=== PATIENT | female | born 1945 | race Caucasian/White ===

== ENCOUNTER 2019-06-25 06:36 | Day surgery (SDC) | payer MEDICARE, BC ==
[2019-06-25] VITALS (7 sets, daily range): BP systolic 134–157; BP diastolic 63–73
[2019-06-25] MEDS ORDERED: normal saline 1000ml 1,000 ML IV PRN (07:05)
[2019-06-25 07:28] LABS: BASOPHILS # (AUTO) 0.1 X10'3 (0-0.2); BASOPHILS % (AUTO) 0.8 % (0-1); EOSINOPHILS # (AUTO) 0.2 X10'3 (0-0.9); EOSINOPHILS % (AUTO) 2.7 % (0-6); HEMATOCRIT 36.6 % (35.0-45.0); HEMOGLOBIN 12.7 g/dl (12.0-16.0); LYMPHOCYTES # (AUTO) 2.7 X10'3 (1.1-4.8); LYMPHOCYTES % (AUTO) 44.4 % (21-51); MEAN CORPUSCULAR HEMOGLOBIN 32.1 PG (27.0-31.0); MEAN CORPUSCULAR HGB CONC 34.7 g/dL (33.0-36.5); MEAN CORPUSCULAR VOLUME 92.4 FL (78-98); MEAN PLATELET VOLUME 8.5 FL (7.4-10.4); MONOCYTES # (AUTO) 0.5 X10'3 (0-0.9); MONOCYTES % (AUTO) 8.3 % (2-12); NEUTROPHILS # (AUTO) 2.6 X10'3 (1.8-7.7); NEUTROPHILS % (AUTO) 43.8 % (42-75); PLATELET COUNT 188 X10'3 (140-440); RED BLOOD COUNT 3.96 X10'6 (4.20-5.60); RED CELL DISTRIBUTION WIDTH 12.9 % (11.5-14.5)
[2019-06-25 07:33] LABS: ALBUMIN 3.5 G/DL (3.4-5.0); ANION GAP 8 (8-16); BLOOD UREA NITROGEN 16 MG/DL (7-18); BUN/CREATININE RATIO 18.8 (6.6-38.0); CALCIUM 8.9 MG/DL (8.5-10.1); CHLORIDE 106 MMOL/L (99-107); CREATININE 0.85 MG/DL (0.40-0.90); GLUCOSE 103 MG/DL (70-104); SODIUM 141 MMOL/L (135-145); TOTAL CARBON DIOXIDE 27.3 MMOL/L (24-32); eGFR 66 ML/MIN
[2019-06-25] MEDS ORDERED: BUTA-244 PO (08:02)
[2019-06-25] MEDS ORDERED: ROSU5TAB12 PO (08:05)
[2019-06-25] MEDS ORDERED: MULT-933 PO (08:05)
[2019-06-25] MEDS ORDERED: VERA120T2 PO (08:05)
[2019-06-25] MEDS ORDERED: fentaNYL/PF 50MCG/1 ML 2ML syringe IV PRN (08:25)
[2019-06-25] MEDS ORDERED: midazolam 2 mg/2 ml injection IV PRN (08:25)
[2019-06-25] MEDS ORDERED: LIDOcaine 1%/PF 5ML 10 MG/ML VIAL SQ ONE (08:25)
[2019-06-25] MEDS ORDERED: heparin 1,000 UNITS/NS 500ml 500 ML ICATH ONE (08:25)
[2019-06-25] MEDS ORDERED: heparin 1,000 UNITS/NS 500ml 500 ML ONE (08:26)
[2019-06-25] MEDS ORDERED: LIDOcaine 1%/PF 5ML 10 MG/ML VIAL ONE (08:26)
[2019-06-25] MEDS ORDERED: fentaNYL/PF 50MCG/1 ML 2ML syringe ONE ×2 (08:26→09:03)
[2019-06-25] MEDS ORDERED: midazolam 2 mg/2 ml injection ONE ×2 (08:26→09:03)
[2019-06-25] MEDS ORDERED: iohexol 300mg/ml 100ml inj. ONE (08:27)
--- NOTE | 2019-06-25 08:29 | NUR ---
Patient to OR with RN via trent
[2019-06-25] MEDS ORDERED: ondansetron/PF 4mg/2ml inj ONE (08:31)
--- NOTE | 2019-06-25 09:59 | NUR ---
Rec patient back from OR via gurney. Awake, sleepy. Denies pain. Left groin with dressing cdi. No hematoma. Bilateral pedal pulses palpable, strong. Pt given instructions on laying flat x6 hrs, until 1550. vss. Asking for water. at bedside.
[2019-06-25] MEDS ORDERED: normal saline 1000ml 1,000 ML IV SCH (10:01)
[2019-06-25] MEDS ORDERED: OMEP20TA23 PO (10:37)
[2019-06-25] MEDS ORDERED: ASPI81TA52 PO (10:38)
[2019-06-25] MEDS ORDERED: PRAM0.754 PO (10:40)
--- NOTE | 2019-06-25 16:43 | NUR ---
Patient discharged in stable condition. Layed flat for 6 hours with no bleeding or hematoma at groin. Dressing clean and dry at discharge. vss. given after care instructions as well as warning re event of bleeding. Piv dc'd. Out to personal vehicle with driving.
== END 2019-06-25 16:30 | disposition home or self-care (01) ==
LOC: SSTAY O 06:36 → EDBD 08:30 → SSTAY O 16:30
PROVIDERS: ATTEND Radiology Vascular & Interventional Radiology
DX: I70.212 Atherosclerosis of native arteries of extremities with intermittent claudication, left leg (principal); G25.81 Restless legs syndrome; M81.0 Age-related osteoporosis without current pathological fracture; E78.5 Hyperlipidemia, unspecified; H40.9 Unspecified glaucoma; Z87.11 Personal history of peptic ulcer disease; Z79.899 Other long term (current) drug therapy; Z88.2 Allergy status to sulfonamides; Z88.8 Allergy status to other drugs, medicaments and biological substances; Z88.5 Allergy status to narcotic agent; Z90.49 Acquired absence of other specified parts of digestive tract; Z98.890 Other specified postprocedural states; F17.210 Nicotine dependence, cigarettes, uncomplicated; Z72.89 Other problems related to lifestyle
CPT/HCPCS: 36415; 37221; 80048; 85025; 85610; 99152; 99153; C1769; C1876; C1894; J1644; J2250; J2405; J3010; J7030; Q9967

== ENCOUNTER 2019-07-16 06:48 | Day surgery (SDC) | payer MEDICARE, BC ==
[~2019-07-16] VITALS: Ht 157.5 cm; Wt 53.3 kg
[2019-07-16] VITALS (9 sets, daily range): BP systolic 138–165; BP diastolic 67–87
[~2019-07-16 06:48] MED LIST: ASPI81TA52 PO; BUTA-244 PO; MULT-933 PO; OMEP20TA23 PO; PRAM0.754 PO; ROSU5TAB12 PO; VERA120T2 PO
[2019-07-16] MEDS ORDERED: LACT1CAP65 PO (07:30)
[2019-07-16] MEDS ORDERED: CA C1TAB91 PO (07:30)
[2019-07-16] MEDS ORDERED: PRAM0.75 PO (07:30)
[2019-07-16] MEDS ORDERED: FLEC100T2 PO (07:30)
[2019-07-16 08:08] LABS: BASOPHILS % (AUTO) 0.8 % (0-1); EOSINOPHILS # (AUTO) 0.2 X10'3 (0-0.9); EOSINOPHILS % (AUTO) 2.5 % (0-6); HEMATOCRIT 36.1 % (35.0-45.0); HEMOGLOBIN 12.5 g/dl (12.0-16.0); LYMPHOCYTES # (AUTO) 2.4 X10'3 (1.1-4.8); LYMPHOCYTES % (AUTO) 38.1 % (21-51); MEAN CORPUSCULAR HEMOGLOBIN 31.9 PG (27.0-31.0); MEAN CORPUSCULAR HGB CONC 34.6 g/dL (33.0-36.5); MEAN CORPUSCULAR VOLUME 92.2 FL (78-98); MEAN PLATELET VOLUME 8.3 FL (7.4-10.4); MONOCYTES # (AUTO) 0.5 X10'3 (0-0.9); MONOCYTES % (AUTO) 8.3 % (2-12); NEUTROPHILS # (AUTO) 3.1 X10'3 (1.8-7.7); NEUTROPHILS % (AUTO) 50.3 % (42-75); PLATELET COUNT 191 X10'3 (140-440); RED BLOOD COUNT 3.92 X10'6 (4.20-5.60); RED CELL DISTRIBUTION WIDTH 12.6 % (11.5-14.5); WHITE BLOOD COUNT 6.2 X10'3 (4.5-11.0)
[2019-07-16] MEDS: normal saline 1000ml 1,000 ML IV PRN ×2 (08:15→11:33)
[2019-07-16] MEDS ORDERED: fentaNYL/PF 50MCG/1 ML 2ML syringe IV PRN (08:20)
[2019-07-16] MEDS ORDERED: heparin 1,000 UNITS/NS 500ml 500 ML ICATH ONE (08:20)
[2019-07-16] MEDS ORDERED: midazolam 2 mg/2 ml injection IV PRN (08:20)
[2019-07-16] MEDS ORDERED: LIDOcaine 1% 30ml preserv. free vial SQ ONE (08:20)
[2019-07-16 08:26] LABS: ALBUMIN 3.6 G/DL (3.4-5.0); ANION GAP 6 (8-16); BLOOD UREA NITROGEN 13 MG/DL (7-18); BUN/CREATININE RATIO 15.1 (6.6-38.0); CALCIUM 8.8 MG/DL (8.5-10.1); CHLORIDE 105 MMOL/L (99-107); CREATININE 0.86 MG/DL (0.40-0.90); GLUCOSE 106 MG/DL (70-104); POTASSIUM 3.7 MMOL/L (3.5-5.1); SODIUM 141 MMOL/L (135-145); TOTAL CARBON DIOXIDE 29.8 MMOL/L (24-32); eGFR 65 ML/MIN
[2019-07-16] MEDS ORDERED: midazolam 2 mg/2 ml injection ONE ×2 (08:42→09:18)
[2019-07-16] MEDS ORDERED: LIDOcaine 1%/PF 5ML 10 MG/ML VIAL ONE (08:42)
[2019-07-16] MEDS ORDERED: fentaNYL/PF 50MCG/1 ML 2ML syringe ONE ×2 (08:43→09:18)
[2019-07-16] MEDS ORDERED: heparin 1,000 UNITS/NS 500ml 500 ML ONE (08:43)
[2019-07-16] MEDS ORDERED: iohexol 300mg/ml 100ml inj. ONE (08:43)
[2019-07-16] MEDS ORDERED: heparin 1,000unit/ml 10ml vial 10 ML ONE (09:25)
[2019-07-16] MEDS ORDERED: normal saline 1000ml 1,000 ML IV SCH (10:01)
[2019-07-16] MEDS ORDERED: acetaminophen 325mg tablet PO PRN (11:20)
[2019-07-16] MEDS ORDERED: ondansetron/PF 4mg/2ml inj IV PRN (12:55)
[2019-07-16] MEDS ORDERED: ondansetron/PF 4mg/2ml inj ONE (12:57)
--- NOTE | 2019-07-16 13:15 | NUR ---
pt vomited x2, notified, Zofran ordered and administered. Pt did ambulate to bathroom in between episodes of vomiting, denied cp, denied sob. Pt is resting in bed. eyes closed, respirations even. pt site stable, no s/s of bleeding.
--- NOTE | 2019-07-16 14:00 | NUR ---
pt states her nausea is "less". She is sitting up at the side of the bed, feet dangling. VS stable as charted. Pt informed me this nausea and vomiting "common for me" after procedures. Will continue to monitor.
== END 2019-07-16 14:10 | disposition home or self-care (01) ==
LOC: SSTAY O 06:48
PROVIDERS: ATTEND Radiology Vascular & Interventional Radiology
DX: I70.212 Atherosclerosis of native arteries of extremities with intermittent claudication, left leg (principal); G25.81 Restless legs syndrome; H40.9 Unspecified glaucoma; M81.0 Age-related osteoporosis without current pathological fracture; E78.5 Hyperlipidemia, unspecified; Z87.11 Personal history of peptic ulcer disease; Z98.890 Other specified postprocedural states; F17.210 Nicotine dependence, cigarettes, uncomplicated; Z72.89 Other problems related to lifestyle; Z88.2 Allergy status to sulfonamides; Z88.5 Allergy status to narcotic agent; Z88.8 Allergy status to other drugs, medicaments and biological substances; Z79.899 Other long term (current) drug therapy
CPT/HCPCS: 36415; 37224; 76937; 80048; 85025; 99152; 99153; C1725; C1760; C1769; C1894; J1644; J2250; J2405; J3010; J7030; Q9967; A6213

== ENCOUNTER 2020-04-30 09:32 | Outpatient (CLI) | payer MEDICARE, BC ==
[~2020-04-30 09:32] MED LIST changes: +CA C1TAB91 PO; +FLEC100T2 PO; +LACT1CAP65 PO; +PRAM0.75 PO
== END 2020-04-30 23:59 | disposition home or self-care (01) ==
LOC: VAS 09:32
PROVIDERS: ATTEND Radiology Vascular & Interventional Radiology
DX: I73.9 Peripheral vascular disease, unspecified (principal)
CPT/HCPCS: 93922; 93925

== ENCOUNTER 2020-10-28 09:49 | Outpatient (CLI) | payer MEDICARE, BC | END 2020-10-28 23:59 | disposition home or self-care (01) | LOC: VAS 09:49 | PROVIDERS: ATTEND Radiology Vascular & Interventional Radiology | DX: I70.202 Unspecified atherosclerosis of native arteries of extremities, left leg (principal) | CPT/HCPCS: 93922; 93925 ==